=== PATIENT | female | born 1975 | race Hispanic/Latino ===

== ENCOUNTER 2017-12-19 10:44 | Emergency (ER) | payer OTHER, SELFPAY ==
[2017-12-19] MEDS ORDERED: METHYLPREDNISOLONE 125 MG INJ ONE (11:40)
[2017-12-19] MEDS ORDERED: DIPHENHYDRAMINE 50 MG/ML VIAL ONE (11:41)
[2017-12-19] MEDS ORDERED: NA CHLORIDE 0.9% 1,000 ML ONE (11:41)
[2017-12-19] MEDS ORDERED: FAMOTIDINE 20 MG/2 ML VIAL IV ONE (11:41)
--- NOTE | 2017-12-19 12:10 | EDPHYS ---
Physician Documentation [facility] Name: Amber Gautam Age: 42 yrs Sex: Female : 1975 Arrival Date: 12/19/2017 Time: 10:45 Bed 5 Private MD: ED Physician Sherif Yeboah HPI: 12/19 11:17 This 42 yrs old Female presents to ER via Unassigned with complaints of Hives, kb Itching. 11:17 The patient presents with itching, rash, that is diffuse. Onset: The symptoms/episode kb began/occurred yesterday. Associated signs and symptoms: Pertinent positives: hives, rash. Possible causes: The patient has no known obvious cause for the symptoms. At home the patient or guardian has treated the symptoms with nothing. Severity of symptoms: At their worst the symptoms were moderate in the emergency department the symptoms are unchanged. The patient has not experienced similar symptoms in the past. The patient has not recently seen a physician. 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 - Social history:: Smoking status: Patient/guardian denies using tobacco. ROS: 11:17 Constitutional: Negative for fever, chills, and weight loss, Cardiovascular: Negative kb for chest pain, palpitations, and edema, Respiratory: Negative for shortness of breath, cough, wheezing, and pleuritic chest pain, Abdomen/GI: Negative for abdominal pain, nausea, vomiting, diarrhea, and constipation, MS/Extremity: Negative for injury and deformity, Neuro: Negative for headache, weakness, numbness, tingling, and seizure. 11:17 Skin: Positive for rash, diffusely. Exam: 11:17 Constitutional: This is a well developed, well nourished patient who is awake, alert, kb and in no acute distress. Head/Face: Normocephalic, atraumatic. Chest/axilla: Normal chest wall appearance and motion. Nontender with no deformity. No lesions are appreciated. Cardiovascular: Regular rate and rhythm with a normal S1 and S2. No gallops, murmurs, or rubs. Normal PMI, no JVD. No pulse deficits. Respiratory: Lungs have equal breath sounds bilaterally, clear to auscultation and percussion. No rales, rhonchi or wheezes noted. No increased work of breathing, no retractions or nasal flaring. Abdomen/GI: Soft, non-tender, with normal bowel sounds. No distension or tympany. No guarding or rebound. No evidence of tenderness throughout. MS/ Extremity: Pulses equal, no cyanosis. Neurovascular intact. Full, normal range of motion. Neuro: Awake and alert, GCS 15, oriented to person, place, time, and situation. Cranial nerves II-XII grossly intact. Motor strength 5/5 in all extremities. Sensory grossly intact. Cerebellar exam normal. Normal gait. 11:17 Skin: urticaria, and is diffusely located. Vital Signs: 11:19 BP 146 / 97; Pulse 81; Resp 18; Temp 97.6; Pulse Ox 100% on R/A; ph MDM: 11:11 Patient medically screened. kb 11:22 Data reviewed: vital signs, nurses notes. Data interpreted: Pulse oximetry: on room air kb is 100 %. Interpretation: normal. 12:06 Counseling: I had a detailed discussion with the patient and/or guardian regarding: the kb historical points, exam findings, and any diagnostic results supporting the discharge/admit diagnosis, the need for outpatient follow up, a family practitioner, to return to the emergency department if symptoms worsen or persist or if there are any questions or concerns that arise at home. 12:09 Response to treatment: the patient's symptoms have resolved after treatment. kb 12/19 11:15 Order name: IV Start; Complete Time: : kb Administered Medications: 11: Drug: NS 0.9% 1000 ml Route: IV; Rate: 1000 ml; Site: right antecubital; hb 12:30 Follow up: Response: No adverse reaction; IV Status: Completed infusion hb 11: Drug: SOLU-Medrol 125 mg Route: IVP; Site: right antecubital; hb 12:00 Follow up: Response: No adverse reaction hb 11: Drug: Pepcid 20 mg Route: IVP; Site: right antecubital; hb 12:00 Follow up: Response: No adverse reaction hb 11: Drug: Benadryl 12.5 mg Route: IVP; Site: right antecubital; hb 12:00 Follow up: Response: No adverse reaction hb Disposition: 12/19/17 12:09 Discharged to Home. Impression: Urticaria. - Condition is Stable. - Discharge Instructions: Hives, [id number]-Zity, Allergies, Swkt-qi-[id number]. - Prescriptions for Pepcid 20 mg Oral Tablet - take 1 tablet by ORAL route every 12 hours for 5 days; 10 tablet. Prednisone 20 mg Oral Tablet - take 1 tablet by ORAL route once daily for 5 days; 5 tablet. - Medication Reconciliation Form, Thank You Letter, Antibiotic Education, Prescription Opioid Use form. - Follow up: Emergency Department; When: As needed; Reason: Worsening of condition. Follow up: Private Physician; When: 2 - 3 days; Reason: Recheck today's complaints, Continuance of care, Re-evaluation by your physician. Addendum: 12/23/2017 07:13 Co-signature as Attending Physician, Sherif Yeboah MD. g s Signatures: Carlota Clayton FNP-C FNP-Gem Healy RN RN Sherif Caro MD MD
--- NOTE | 2017-12-19 12:10 | ER ---
Nurse's Notes [facility] Name: Amber Gautam Age: 42 yrs Sex: Female : 1975 Arrival Date: 12/19/2017 Time: 10:45 Bed 5 Private MD: Diagnosis: Urticaria Presentation: 12/19 11:16 Presenting complaint: Patient states: " I ate [employer] yesterday and a little while ph later I started getting hives all over and itching. They got better and then they came back. " Hives noted to talib legs, arms, chest and back, pt denies SOB. Transition of care: patient was not received from another setting of care. Onset: The symptoms/episode began/occurred acutely. Anaphylaxis evaluation, no signs or symptoms of anaphylaxis were noted. Onset of symptoms was December 18, 2017. Care prior to arrival: None. 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 - Social history:: Smoking status: Patient/guardian denies using tobacco. Screenin:15 Abuse screen: Denies threats or abuse. Denies injuries from another. Nutritional hb screening: No deficits noted. Tuberculosis screening: No symptoms or risk factors identified. Fall Risk None identified. Assessment: 11:15 General: Appears in no apparent distress. Behavior is calm, cooperative. Pain: Denies hb pain. Neuro: Level of Consciousness is awake, alert, obeys commands, Oriented to person, place, time, situation. Cardiovascular: Capillary refill < 3 seconds Patient's skin is warm and dry. Respiratory: Airway is patent Trachea midline Respiratory effort is even, unlabored, Respiratory pattern is regular, symmetrical, Breath sounds are clear bilaterally. GI: No signs and/or symptoms were reported involving the gastrointestinal system. : No signs and/or symptoms were reported regarding the genitourinary system. EENT: No signs and/or symptoms were reported regarding the EENT system. Derm: very mild rash noted to trunk and arms. Musculoskeletal: No signs and/or symptoms reported regarding the musculoskeletal system. 12:15 Reassessment: Patient appears in no apparent distress at this time. Patient and/or hb family updated on plan of care and expected duration. Pain level reassessed. Patient is alert, oriented x 3, equal unlabored respirations, skin warm/dry/pink. Patient denies pain at this time. Patient states feeling better. Patient states symptoms have improved. Vital Signs: 11:19 BP 146 / 97; Pulse 81; Resp 18; Temp 97.6; Pulse Ox 100% on R/A; ph ED Course: 10:45 Patient arrived in ED. as 11:06 [facility]C [facility] kb 11:06 Sherif Yeboah MD is Attending Physician. kb 11:15 Patient has correct armband on for positive identification. Bed in low position. Call hb light in reach. Side rails up X 1. 11:19 Triage completed. ph 11:19 Gem Pineda, RN is Primary Nurse. hb 11:19 Arm band placed on Patient placed in an exam room. ph 11:30 Inserted saline lock: 20 gauge in right antecubital area, using aseptic technique. ag 12:30 No provider procedures requiring assistance completed. IV discontinued. hb Administered Medications: 11:26 Drug: NS 0.9% 1000 ml Route: IV; Rate: 1000 ml; Site: right antecubital; hb 12:30 Follow up: Response: No adverse reaction; IV Status: Completed infusion hb 11:26 Drug: SOLU-Medrol 125 mg Route: IVP; Site: right antecubital; hb 12:00 Follow up: Response: No adverse reaction hb 11:26 Drug: Pepcid 20 mg Route: IVP; Site: right antecubital; hb 12:00 Follow up: Response: No adverse reaction hb 11:26 Drug: Benadryl 12.5 mg Route: IVP; Site: right antecubital; hb 12:00 Follow up: Response: No adverse reaction hb Outcome: 12:09 Discharge ordered by . kb 12:30 Discharged to home ambulatory. hb 12:30 Condition: stable 12:30 Discharge instructions given to patient, Instructed on discharge instructions, follow up and referral plans. medication usage, Demonstrated understanding of instructions, follow-up care, medications, Prescriptions given X 2. 12:41 Patient left the ED. hb Signatures: Carlota Clayton FNP-C FORMING PRESS OPERATOR-Jaylene Moore Ana ag Hall, Patricia RN RN ph Gem Pineda, RN RN hb
== END 2017-12-19 12:41 | disposition home or self-care (01) ==
LOC: ER 10:44
DX: L50.9 Urticaria, unspecified (principal)
CPT/HCPCS: 96361; 96374; 96375; 99283; J2930; J7030

== ENCOUNTER 2020-09-23 16:37 | Emergency (ER) | payer SELFPAY ==
[2020-09-23 19:07] LABS: Absolute Lymphocytes (CBC) 0.9 K/uL (0.7-4.9); Basophils % 0.5 % (0-1.3); Hematocrit 44.3 % (36.0-45.0); Lymphocytes % 14.2 % (15.3-44.8); MPV 8.6 fL (7.6-11.3); RBC Red Blood Cell Count 4.84 M/uL (3.86-4.86)
[2020-09-23] MEDS ORDERED: NA CHLORIDE 0.9% 1,000 ML ONE (19:08)
[2020-09-23] MEDS ORDERED: DIPHENHYDRAMINE 50 MG/ML VIAL ONE (19:08)
[2020-09-23] MEDS ORDERED: METOCLOPRAMIDE 10 MG/2mL INJ ONE (19:08)
[2020-09-23] MEDS ORDERED: ACETAMINOPHEN 500 MG TAB ONE (19:08)
[2020-09-23 19:19] LABS: Protime INR 1.11
--- NOTE | 2020-09-23 19:25 | RAD REPORT ---
EXAM DESCRIPTION: CT - Head Brain Wo Cont - 09/23/2020 7:06 pm CLINICAL HISTORY: HEADACHE COMPARISON: <Comparisons> TECHNIQUE: Axial 5 mm thick images of the head were obtained without IV contrast. All CT scans are performed using dose optimization technique as appropriate and may include automated exposure control or mA/KV adjustment according to patient size. FINDINGS: No intracranial hemorrhage, mass, edema or shift of mid-line structures. No acute infarcti on changes seen. No abnormal extra-axial fluid collections. Ventricles are normal. Mastoid air cells and visualized portions of the paranasal sinuses are clear. No acute bony findings. IMPRESSION: Negative non-contrast CT head examination.
[2020-09-23 19:32] LABS: ALT/SGPT 257 U/L (12-78); AST/SGOT 162 U/L (15-37); Albumin 3.5 g/dL (3.4-5.0); Alkaline Phosphatase 82 U/L (45-117); BUN Blood Urea Nitrogen 9 mg/dL (7-18); Bicarbonate 28 mmol/L (21-32); Bilirubin Direct 0.1 mg/dL (0-0.2); Bilirubin Total 0.3 mg/dL (0.2-1.0); Glucose Level 100 mg/dL (74-106); Lipase 165 U/L (73-393); Potassium 3.9 mmol/L (3.5-5.1); Protein, Total 7.8 g/dL (6.4-8.2); Sodium Level 141 mmol/L (136-145); Troponin (Emerg Dept Use Only) < 0.02 ng/mL (0.0-0.045)
--- NOTE | 2020-09-23 21:04 | RAD REPORT ---
EXAM DESCRIPTION: CT - Abdomen Pelvis W Contrast - 09/23/2020 8:33 pm CLINICAL HISTORY: ABD PAIN COMPARISON: No comparisons TECHNIQUE: Biphasic, helical CT imaging of the abdomen and pelvis was performed following 100 ml non -ionic IV contrast. No oral contrast administered. All CT scans are performed using dose optimization technique as appropriate and may include automated exposure control or mA/KV adjustment according to patient size. FINDINGS: Numerous ground-glass opacities are present in both lower lobes. No dense consolidated par enchyma. No pneumothorax or pleural effusion. No cardiomegaly or pericardial effusion. Mild fatty infiltration of the liver with no focal liver lesion. Spleen and pancreas show no suspicio us findings. Numerous gallstones fill an otherwise unremarkable gallbladder. No biliary tree dilatati on. Symmetric renal function is seen with no hydronephrosis or suspicious renal mass. No pyelonephritis o r acute parenchymal process. No bladder abnormalities. No adrenal abnormalities. Uterus and ovaries s how no suspicious findings. No dilated bowel loops or bowel wall thickening. No free air, free fluid or inflammatory stranding. No mass or bulky lymphadenopathy. Fat only small periumbilical hernia present. No suspicious bony findings. No acute vascular finding. IMPRESSION: Patchy ground-glass opacities are present in each lower lung field. Ground-glass patter n has multiple etiologies but has been well described in COVID-19 pneumonia and correlation is needed with any clinical findings or concerns for COVID-19 infection. Multi stone cholelithiasis with no active gallbladder, biliary tree or pancreatic process. Mild fatty infiltration of the liver.
--- NOTE | 2020-09-23 21:17 | RAD REPORT ---
EXAM DESCRIPTION: RAD - Chest Single View - 09/23/2020 7:59 pm CLINICAL HISTORY: CHEST PAIN COMPARISON: None TECHNIQUE: AP portable chest image was obtained 09/23/2020 7:59 pm . FINDINGS: Lung volumes are low. There is no dense consolidation. However patchy opacities are presen t in the lower lung best. No failure or volume overload. Heart and vasculature are normal. No measu rable pleural effusion and no pneumothorax. No acute bony abnormality seen. No acute aortic findings suspected. IMPRESSION: Limited shallow inspiration film shows patchy lung base opacification. Pattern is nonspecific but can be seen in viral pneumonia, including COVID-19 pneumonia, and atypical bacterial pneumonia presentation.
[2020-09-23 22:02] LABS: Urine Bacteria NONE SEEN /HPF (<20); Urine Mucus 1+ /HPF (NONE SEEN); Urine RBC <5 /HPF (NONE SEEN)
--- NOTE | 2020-09-23 22:10 | ER ---
Nurse's Notes [facility] Name: Amber Gautam Age: 44 yrs Sex: Female : 1975 Arrival Date: 09/23/2020 Time: 16:40 Bed 6 Private MD: Diagnosis: Pneumonia due to other specified infectious organisms;Cholelithiasis Presentation: 09/23 16:58 Chief complaint: Patient states: Left sided head pressure that radiates into left ll1 arm/shoulder/chest for 2 weeks. Lower abd pain that wraps around to lower abdomen for 2 weeks. No cough or fever. + decreased appetite. Coronavirus screen: Client denies travel out of the [place] in the last 14 days. fatigue, headache, Client presents with at least one sign or symptom that may indicate coronavirus-19. Standard/surgical mask placed on the client. Ebola Screen: Patient denies travel to an Ebola-affected area in the 21 days before illness onset. Initial Sepsis Screen: Does the patient meet any 2 criteria? HR > 90 bpm. No. Patient's initial sepsis screen is negative. Does the patient have a suspected source of infection? Yes: Other: COLE. Risk Assessment: Do you want to hurt yourself or someone else? Patient reports no desire to harm self or others. Onset of symptoms was September 09, 2020. 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 - Social history:: Smoking status: Patient denies any tobacco usage or history of. Screenin:21 Abuse screen: Denies threats or abuse. Denies injuries from another. Nutritional sv screening: No deficits noted. Tuberculosis screening: No symptoms or risk factors identified. Fall Risk None identified. Assessment: 18:45 General: Appears in no apparent distress. comfortable, well developed, Behavior is sv calm, cooperative, appropriate for age. Pain: Complains of pain in chest, abdomen and left arm Pain currently is 6 out of 10 on a pain scale. Pain began last weekend Is intermittent. Neuro: Level of Consciousness is awake, alert, obeys commands, Oriented to person, place, time, situation, Moves all extremities. Full function Gait is steady. Cardiovascular: Patient's skin is warm and dry. Rhythm is sinus rhythm. Respiratory: Respiratory effort is even, unlabored, Respiratory pattern is regular, symmetrical. Derm: Skin is pink, warm \T\ dry. 19:10 General: Appears in no apparent distress. comfortable, Behavior is calm, cooperative, rr5 appropriate for age. Pain: Complains of pain in left base of the skull Pain radiates to base of the skull Pain Quality of pain is described as aching, Pain began gradually, Is intermittent. Neuro: Level of Consciousness is awake, alert, obeys commands, Oriented to person, place, time, situation. Cardiovascular: Capillary refill < 3 seconds Patient's skin is warm and dry. Respiratory: Airway is patent Respiratory effort is even, unlabored, Respiratory pattern is regular, symmetrical. GI: No signs and/or symptoms were reported involving the gastrointestinal system. : No signs and/or symptoms were reported regarding the genitourinary system. EENT: No signs and/or symptoms were reported regarding the EENT system. Derm: Skin is intact, is healthy with good turgor, Skin temperature is warm. Musculoskeletal: Circulation, motion, and sensation intact. Capillary refill < 3 seconds. 20:35 Reassessment: Patient appears in no apparent distress at this time. Patient is alert, rr5 oriented x 3, equal unlabored respirations, skin warm/dry/pink. send to CT scan via wheelchair assisted by CT staff. 21:40 Reassessment: Patient appears in no apparent distress at this time. Patient is alert, rr5 oriented x 3, equal unlabored respirations, skin warm/dry/pink. awaiting for review. 22:28 Reassessment: Patient appears in no apparent distress at this time. Patient is alert, rr5 oriented x 3, equal unlabored respirations, skin warm/dry/pink. discharge instruction given and explained without complaints made Patient states symptoms have improved. Vital Signs: 16:58 BP 136 / 92; Pulse 95; Resp 17; Temp 100.4; Pulse Ox 100% ; Pain 6/10; ll1 16:58 Height 5 ft. 1 in. (154.94 cm); ll1 19:30 BP 116 / 79; Pulse 88; Resp 16; Temp 98.8; Pulse Ox 99% ; rr5 20:30 BP 133 / 85; Pulse 89; Resp 17; Pulse Ox 98% ; rr5 21:30 BP 110 / 70; Pulse 82; Resp 17; Pulse Ox 98% ; Pain 0/10; rr5 22:30 BP 105 / 74; Pulse 80; Resp 16; Temp 98.2; Pulse Ox 99% ; Pain 0/10; rr5 ED Course: 16:40 Patient arrived in ED. rg4 17:02 Triage completed. ll1 17:02 Arm band placed on. ll1 18:21 Radha Garcia, RN is Primary Nurse. sv 18:21 Patient has correct armband on for positive identification. Bed in low position. Call sv light in reach. Pulse ox on. NIBP on. 18:22 Awaiting ED provider evaluation. sv 18:22 Patient maintains SpO2 saturation greater than 95% on room air. sv 18:24 Telly Medina PA is PHCP. cp 18:24 Tereso Burrows MD is Attending Physician. cp 18:40 Warm blanket given. mh5 18:55 Inserted saline lock: 20 gauge in right antecubital area, using aseptic technique. sv Blood collected. Flushed right antecubital with 5 ml normal saline. 19:06 CT Head Brain wo Cont In Process Unspecified. EDMS 19:10 Report given to Rustam STARKEY and [facility] STARKEY. sv 19:11 Attending Physician role handed off by Tereso Burrows MD sheeba 19:11 Telly Osorio MD is Attending Physician. sheeba 19:13 Primary Nurse role handed off by Radha Garcia RN sv 19:24 Rutsam Walsh, RN is Primary Nurse. rr5 19:59 XRAY Chest (1 view) In Process Unspecified. EDMS 20:33 CT Abd/Pelvis - IV Contrast Only In Process Unspecified. EDMS 21:29 Urine collected: clean catch specimen, clear. rr5 22:08 Fran Monge MD is Referral Physician. cp 22:28 No provider procedures requiring assistance completed. IV discontinued, intact, rr5 bleeding controlled, No redness/swelling at site. Pressure dressing applied. Administered Medications: 19:01 Drug: Tylenol 1000 mg Route: PO; sv 22:29 Follow up: Response: No adverse reaction rr5 19:20 Drug: NS 0.9% 1000 ml Route: IV; Rate: 1 bolus; Site: right antecubital; rr5 20:10 Follow up: Response: No adverse reaction; IV Status: Completed infusion; IV Intake: rr5 1000ml 19:20 Drug: Benadryl 25 mg Route: IVP; Site: right antecubital; rr5 20:20 Follow up: Response: No adverse reaction; Marked relief of symptoms rr5 19:22 Drug: Reglan 10 mg Route: IVP; Site: right antecubital; rr5 20:20 Follow up: Response: No adverse reaction; Marked relief of symptoms rr5 22:19 Drug: LevaQUIN 750 mg Route: PO; sg 22:29 Follow up: Response: No adverse reaction rr5 Intake: 20:10 IV: 1000ml; Total: 1000ml. rr5 Outcome: 22:09 Discharge ordered by . cp 22:28 Discharged to home ambulatory. rr5 22:28 Condition: stable 22:28 Discharge instructions given to patient, Instructed on discharge instructions, follow up and referral plans. medication usage, Demonstrated understanding of instructions, follow-up care, wound care, Prescriptions given X 2. 22:31 Patient left the ED. rr5 Addendum: 09/26/2020 17:34 Addendum: COVID-19 Result: Positive result giiven to ED physician to notify pt. i w Physician: Telly Osorio MD Physician was able to contact pt and pt was notified of positive COVID-19 swab result. Physician answered pt questions. Signatures: Dispatcher [employer] EDMS Radha Garcia RN RN sv Gay, Steven, RN RN sg Anderson, Corey, MD MD cha Williams, Irene RN Telly Plummer PA PA cp Garcia, Rubi rg4 Amber Wynn Rustam Barksdale RN RN rr5 Lashae Martinez RN RN ll1
--- NOTE | 2020-09-23 22:10 | EDPHYS ---
Physician Documentation [facility] Name: Amber aGutam Age: 44 yrs Sex: Female : 1975 Arrival Date: 09/23/2020 Time: 16:40 Bed 6 Private MD: ED Physician Telly Osorio HPI: 09/23 18:50 This 44 yrs old Female presents to ER via Ambulatory with complaints of Chest cp Pressure, Head Pressure, Abdominal Pain, Back Pain, Eye Problem. 18:50 The patient complains of pain to the left side of head. cp 18:50 The patient describes the headache as aching. cp 18:50 Onset: The symptoms/episode began/occurred 2 week(s) ago. cp 18:50 Associated signs and symptoms: Pertinent positives: fever, chest pain and mid back pain cp and lower abdomen pain, Pertinent negatives: altered mental status, neck stiffness. 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 - Social history:: Smoking status: Patient denies any tobacco usage or history of. ROS: 18:55 Constitutional: Positive for fever, Negative for poor PO intake. cp 18:55 Eyes: Negative for injury, pain, redness, and discharge. cp 18:55 Neck: Negative for pain with movement, pain at rest, stiffness. 18:55 Cardiovascular: Positive for chest pain, Negative for edema, palpitations. 18:55 Abdomen/GI: Positive for abdominal pain, of the right lower quadrant and left lower quadrant, Negative for vomiting, diarrhea. 18:55 Back: Positive for pain at rest, pain with movement, of the left subscapular area and right subscapular area. 18:55 : Negative for urinary symptoms. 18:55 Skin: Negative for cellulitis, rash. 18:55 Neuro: Positive for headache, Negative for altered mental status, numbness, weakness. 18:55 All other systems are negative. Exam: 19:05 Constitutional: The patient appears in no acute distress, alert, awake, cp non-diaphoretic, non-toxic, well developed, well nourished. 19:05 Head/Face: Normocephalic, atraumatic. cp 19:05 Eyes: Periorbital structures: appear normal, Conjunctiva: normal, no exudate, no injection, Sclera: no appreciated abnormality, Lids and lashes: appear normal, bilaterally. 19:05 ENT: External ear(s): are unremarkable, Nose: is normal, Mouth: Lips: moist, Oral mucosa: pink and intact, moist, Posterior pharynx: Airway: no evidence of obstruction, patent, erythema, is not appreciated, exudate, is not appreciated. 19:05 Neck: ROM/movement: is normal, is supple, no meningismus, no nuchal rigidity. 19:05 Chest/axilla: Inspection: normal, Palpation: is normal, no crepitus, no tenderness. 19:05 Cardiovascular: Rate: normal, Rhythm: regular, Edema: is not appreciated, JVD: is not appreciated. 19:05 Respiratory: the patient does not display signs of respiratory distress, Respirations: labored breathing, is not present, Breath sounds: decreased breath sounds, are not appreciated, stridor, is not appreciated, wheezing: is not appreciated. 19:05 Abdomen/GI: Inspection: abdomen appears normal, Bowel sounds: active, all quadrants, Palpation: soft, in all quadrants, mild abdominal tenderness, in the right lower quadrant and left lower quadrant. 19:05 Back: pain, that is mild, of the left subscapular area and right subscapular area, ROM is normal. 19:05 Skin: no rash present. 19:05 Neuro: Orientation: to person, place \T\ time. Mentation: is normal, Cerebellar function: is grossly normal, Motor: moves all fours, strength is normal, Sensation: no obvious gross deficits. 19:07 ECG was reviewed by the Attending Physician. cp Vital Signs: 16:58 BP 136 / 92; Pulse 95; Resp 17; Temp 100.4; Pulse Ox 100% ; Pain 6/10; ll1 16:58 Height 5 ft. 1 in. (154.94 cm); ll1 19:30 BP 116 / 79; Pulse 88; Resp 16; Temp 98.8; Pulse Ox 99% ; rr5 20:30 BP 133 / 85; Pulse 89; Resp 17; Pulse Ox 98% ; rr5 21:30 BP 110 / 70; Pulse 82; Resp 17; Pulse Ox 98% ; Pain 0/10; rr5 22:30 BP 105 / 74; Pulse 80; Resp 16; Temp 98.2; Pulse Ox 99% ; Pain 0/10; rr5 MDM: 19:12 Patient medically screened. sheeba 22:08 Data reviewed: vital signs, nurses notes, lab test result(s), EKG, radiologic studies, cp CT scan, plain films. 22:08 Differential diagnosis: meningitis, migraine, sinusitis, tension headache, dehydration. cp Test interpretation: by ED physician or midlevel provider: ECG. Counseling: I had a detailed discussion with the patient and/or guardian regarding: the historical points, exam findings, and any diagnostic results supporting the discharge/admit diagnosis, lab results, radiology results, the need for outpatient follow up, a general surgeon, to return to the emergency department if symptoms worsen or persist or if there are any questions or concerns that arise at home. Response to treatment: the patient's symptoms have markedly improved after treatment, and as a result, I will discharge patient. 22:08 ED course: VSS. Pain improved. Patient appears non-toxic and no signs of respiratory cp distress. Will discharge to home for continued monitoring. 09/23 18:38 Order name: Basic Metabolic Panel; Complete Time: 20:01 09/23 18:38 Order name: CBC with Diff; Complete Time: 20:01 09/23 20:01 Interpretation: Normal except: BK% 76.8; LYM% 14.2. 09/23 18:38 Order name: LFT's; Complete Time: 20:01 09/23 20:01 Interpretation: Normal except: AST 162; ALT 257; GLOB 4.3; A/G 0.8. 12/ 18:38 Order name: Magnesium; Complete Time: 20:01 cp 09/23 18:38 Order name: PT-INR; Complete Time: 20:01 09/23 18:38 Order name: Troponin (emerg Dept Use Only); Complete Time: 20:01 09/23 18:38 Order name: XRAY Chest (1 view); Complete Time: 22:01 09/23 18:38 Order name: Urine Microscopic Only cp 09/23 18:38 Order name: CT Head Brain wo Cont; Complete Time: 20:01 09/23 20:02 Interpretation: Report reviewed. 09/23 18:38 Order name: Lipase; Complete Time: 20:01 cp 09/23 18:38 Order name: Influenza Screen (a \T\ B); Complete Time: 20:01 cp 09/23 18:38 Order name: COVID-19 cp 09/23 20:03 Order name: CT Abd/Pelvis - IV Contrast Only; Complete Time: 22:01 cp 09/23 18:38 Order name: Cardiac monitoring; Complete Time: 19:02 cp 09/23 18:38 Order name: EKG - Nurse/Tech; Complete Time: 19:12 cp 09/23 18:38 Order name: IV Saline Lock; Complete Time: 19:01 cp 09/23 18:38 Order name: Labs collected and sent; Complete Time: 19:01 cp 09/23 18:38 Order name: O2 Per Protocol; Complete Time: 19:01 cp 09/23 18:38 Order name: O2 Sat Monitoring; Complete Time: 19:01 cp 09/23 18:38 Order name: Urine Dipstick-Ancillary (obtain specimen); Complete Time: 21:28 cp 09/23 18:38 Order name: Urine Test (obtain specimen); Complete Time: 21:27 cp EC:07 Rate is 88 beats/min. Rhythm is regular. VT interval is normal. QRS interval is cp prolonged at 102 msec. QT interval is normal. Interpreted by me. Reviewed by me. Administered Medications: 19:01 Drug: Tylenol 1000 mg Route: PO; sv 22:29 Follow up: Response: No adverse reaction rr5 19:20 Drug: NS 0.9% 1000 ml Route: IV; Rate: 1 bolus; Site: right antecubital; rr5 20:10 Follow up: Response: No adverse reaction; IV Status: Completed infusion; IV Intake: rr5 1000ml 19:20 Drug: Benadryl 25 mg Route: IVP; Site: right antecubital; rr5 20:20 Follow up: Response: No adverse reaction; Marked relief of symptoms rr5 19:22 Drug: Reglan 10 mg Route: IVP; Site: right antecubital; rr5 20:20 Follow up: Response: No adverse reaction; Marked relief of symptoms rr5 22:19 Drug: LevaQUIN 750 mg Route: PO; sg 22:29 Follow up: Response: No adverse reaction rr5 Disposition: 22:51 Co-signature as Attending Physician, Telly Osorio MD I agree with the assessment and sheeba plan of care. Disposition: 09/23/20 22:09 Discharged to Home. Impression: Pneumonia due to other specified infectious organisms, Cholelithiasis. - Condition is Stable. - Discharge Instructions: Community-Acquired Pneumonia, Adult, Cholelithiasis, COVID-19. - Prescriptions for Levaquin 500 mg Oral Tablet - take 1 tablet by ORAL route once daily for 7 days; 7 tablet. Albuterol Sulfate 90 mcg/actuation - inhale 1-2 puff by INHALATION route every 4-6 hours; 1 Inhaler. - Medication Reconciliation Form, Thank You Letter, Antibiotic Education, Prescription Opioid Use, Work release form form. - Follow up: Private Physician; When: 1 - 2 days; Reason: Recheck today's complaints. Follow up: Fran Monge MD; When: 7 - 10 days; Reason: cholelithiasis. - Problem is new. - Symptoms have improved. Signatures: Dispatcher [employer] Radha Montague RN RN sv Gay, Steven, RN RN sg Anderson, Corey, MD MD cha Page, Corey, PA PA cp Rustam Walsh RN RN rr5 Lashae Martinez RN RN ll1 Corrections: (The following items were deleted from the chart) 22:31 22:09 09/23/2020 22:09 Discharged to Home. Impression: Pneumonia due to other specified rr5 infectious organisms; Cholelithiasis. Condition is Stable. Forms are Medication Reconciliation Form, Thank You Letter, Antibiotic Education, Prescription Opioid Use. Follow up: Private Physician; When: 1 - 2 days; Reason: Recheck today's complaints. Follow up: Dr. Fran Monge; When: 7 - 10 days; Reason: cholelithiasis. Problem is new. Symptoms have improved. cp
[2020-09-23] MEDS ORDERED: levoFLOXacin 750 MG TAB ONE (22:32)
[2020-09-23 22:42] VITALS: BP 105/74; TEMP 98.2; O2SAT 99
== END 2020-09-23 22:31 | disposition home or self-care (01) ==
LOC: ER 16:37
DX: U07.1 COVID-19 (principal); J16.8 Pneumonia due to other specified infectious organisms; K80.20 Calculus of gallbladder without cholecystitis without obstruction
CPT/HCPCS: 36415; 70450; 71045; 74177; 80048; 80076; 81015; 83690; 83735; 84484; 85025; 85610; 87804; 96361; 96374; 96375; 99285; J1200; J2765; J7030; Q9967; U0002